=== PATIENT | female | born 1975 | race Caucasian/White ===

== ENCOUNTER 2017-12-10 05:19 | Day surgery (SDC) | payer MEDICAID ==
[~2017-12-10] VITALS: Ht 172.7 cm; Wt 122.3 kg
--- NOTE | ~2017-12-10 | OP ---
PATIENT NAME: KARIE IRENE MEDICAL RECORD: [id number] :79 LOCATION:[facility] ADMISSION DATE: SURGEON: NU GARRETT DO DATE OF OPERATION: 12/10/2017 PROCEDURE: EGD with biopsies. INDICATIONS FOR PROCEDURE: Heartburn, epigastric abdominal pain, nausea, constipation. SCOPE: Olympus video gastroscope. MEDICATIONS: Propofol 240 mg IV per anesthesia. ESTIMATED BLOOD LOSS: Minimal. COMPLICATIONS: None. FINDINGS: Informed consent was given. The patient was made comfortable with the above medication. After reaching an adequate level of sedation by slow IV push, the patient was placed on her left side. The endoscope was then advanced under direct visualization through the mouth to the second portion of the duodenum. The upper, middle, and lower thirds of the esophagus appeared normal. At the GE junction, there was some evidence of moderately severe LA class B reflux-induced esophagitis. There were no ulcers associated with this reflux. The endoscope was advanced beyond the GE junction into the stomach and retroflexed view of the cardia where a hiatal hernia was visualized. The hernia itself was small but could be contributing to her reflux esophagitis. Throughout the entire stomach, there was a pattern of diffuse congestion and edema with a few patchy areas of erythema and granularity, which could be consistent with gastritis. Random biopsies were taken to submit for histopathology and to rule out H. pylori. The endoscope was advanced beyond the pylorus into the duodenum. The entire exam and duodenum appeared normal. The endoscope was then withdrawn from the patient. The patient tolerated the procedure well and there were no complications. IMPRESSION: 1. LA class B reflux-induced esophagitis. 2. Small sliding hiatal hernia. 3. Possible gastritis characterized by congestion, erythema, and patchy granular sites with biopsies pending. PLAN AND RECOMMENDATIONS: 1. Discharge home when recovery parameters are met. 2. Follow up biopsy specimen results. 3. Continue Protonix 40 mg daily and add famotidine 40 mg p.o. q.h.s. 4. Right upper quadrant ultrasound to rule out gallbladder pathology as a factor contributing to symptoms. 5. PIPIDA scan to follow ultrasound if the ultrasound is negative. 6. Consider gastric emptying study to rule out gastroparesis as a cause of nausea if gallbladder is ruled out. 7. Consider antireflux surgery if no benefit is gained with antacid therapy. TRANSINT:[id number] Voice Confirmation ID: [id number] DOCUMENT ID: [id number] OPERATIVE REPORT [id number] KARIE IRENE,NU Kay DO at 1119 CC: [id number] DICTATION DATE: 12/10/17 0758 [employer]: 12/10/17 0902 [facility] 12/10/17 [place] [id number]
[2017-12-10] MEDS ORDERED: LOVENOX40 MG/0.4 SC (06:10)
[2017-12-10] MEDS ORDERED: COUMADIN10 MG PO (06:11)
[2017-12-10] MEDS ORDERED: OXYCODONE-ACETAMINOP (06:11)
[2017-12-10] MEDS ORDERED: LIPITOR20 MG PO (06:12)
[2017-12-10] MEDS ORDERED: GEMFIBROZIL600 MG PO (06:13)
[2017-12-10] MEDS ORDERED: PROTONIX40 MG PO (06:13)
[2017-12-10] MEDS ORDERED: VITAMIN D250000 UNIT PO (06:15)
[2017-12-10 06:22] VITALS: BP 135/90; Ht 172.7 cm; Wt 122.3 kg
[2017-12-10 06:28] LABS: HEMATOCRIT 44.1 % (36.0-48.0); HEMOGLOBIN 14.3 g/dL (12-16); MCH 27.8 pg (26.0-34.0); MCHC 32.4 g/dL (31.0-37.0); MCV 85.8 fL (80.0-100.0); RBC 5.14 10x6/uL (4.00-5.40); RDW 14.3 % (11.5-14.5); WBC 8.6 10x3/uL (4.8-10.8)
[2017-12-10 06:38] LABS: INR 0.9 (0.85-1.17); PROTIME 11.8 SECONDS (11.6-15.0)
== END 2017-12-10 08:42 | disposition home or self-care (01) ==
LOC: D.OPS 05:19
PROVIDERS: Anesthesiology
DX: R10.13 Epigastric pain (principal); R11.0 Nausea; K59.00 Constipation, unspecified; K21.0 Gastro-esophageal reflux disease with esophagitis; K44.9 Diaphragmatic hernia without obstruction or gangrene; F17.200 Nicotine dependence, unspecified, uncomplicated; K21.9 Gastro-esophageal reflux disease without esophagitis; Z01.812 Encounter for preprocedural laboratory examination

== ENCOUNTER → 2017-12-17 07:23 | Outpatient (CLI) | payer MEDICAID ==
[2017-12-10 06:22] VITALS: BMI 40.9
[~2017-12-17 07:23] MED LIST: COUMADIN10 MG PO; GEMFIBROZIL600 MG PO; LIPITOR20 MG PO; LOVENOX40 MG/0.4 SC; OXYCODONE-ACETAMINOP; PROTONIX40 MG PO; VITAMIN D250000 UNIT PO
== END | disposition home or self-care (01) ==
LOC: D.US 07:23
DX: R10.13 Epigastric pain (principal); R11.0 Nausea

== ENCOUNTER → 2018-07-01 07:19 | Outpatient (CLI) | payer BC ==
[2017-12-10 06:22] VITALS: BMI 40.9
[2018-07-01 08:19] LABS: ALBUMIN 3.3 g/dL (3.4-5.0); BILIRUBIN - DIRECT 0.12 mg/dL (0.00-0.30); BILIRUBIN - INDIRECT 0.26 mg/dL (0.00-1.00); BILIRUBIN - TOTAL 0.38 mg/dL (0.2-1.3); PROTEIN - SERUM 7.6 g/dL (6.4-8.2)
== END | disposition home or self-care (01) ==
LOC: D.US 06-19 08:30
PROVIDERS: Internal Medicine Gastroenterology
DX: K76.0 Fatty (change of) liver, not elsewhere classified (principal)